=== PATIENT | male | born 2000 | race Caucasian/White ===

== ENCOUNTER 2020-09-22 11:01 | Day surgery (SDC) | payer BC ==
[2020-09-22] VITALS (8 sets, daily range): BP systolic 112–131; BP diastolic 57–72; PULSE 49–66; TEMP 98.1
[~2020-09-22] VITALS: Ht 182.9 cm; Wt 59.2 kg
[2020-09-22] MEDS ORDERED: ULTRAM 50MG TAB50 MG PO (17:23)
--- NOTE | 2020-09-22 19:15 | NUR ---
Received report from Hilda. Patient is awake and alert. He report having pain on his incision site with pain score of 4-5/10. Hilda RN give Tramadol at [id number]. Awaiting for patient to void so he can be discharge. He was able to eat and drink with no problems. He has 3 incision sites which are clean, dry and intact.
--- NOTE | 2020-09-22 20:45 | NUR ---
Patient able to void. Discharge orders were processed. Discharge instructions given. Unable to print patient instructions signature page, but instructions regarding Tramadol and Hernia repair home instructions given. IV removed. Checked incision site again and it was clean, dry and intact, with bandaid. He was assisted by Linda ANTONIO via wheelchair in going down.
== END 2020-09-22 20:45 | disposition home or self-care (01) ==
LOC: SDCO 11:01 → MEDICAL 18:18 → SDCO 20:45
DX: K40.90 Unilateral inguinal hernia, without obstruction or gangrene, not specified as recurrent (principal); K59.00 Constipation, unspecified; F17.290 Nicotine dependence, other tobacco product, uncomplicated; Z79.899 Other long term (current) drug therapy
CPT/HCPCS: OP; C1781; J0690; J1100; J1170; J1885; J2405; J2704; J3010; J7120